=== PATIENT | female | born 1980 | race Caucasian/White ===

== ENCOUNTER 2020-07-29 12:52 | Emergency (ER) | payer OTHER ==
[~2020-07-29] VITALS: Ht 160 cm; Wt 84.1 kg
[2020-07-29] MEDS ORDERED: QUET100T PO (12:55)
[2020-07-29 13:35] VITALS: BP 122/81
[2020-07-29] MEDS ORDERED: IBUPROFEN 600 MG TABLET PO ONE (13:45)
[2020-07-29] MEDS ORDERED: NEOMYCIN/POLYMYXIN B/HYDROCORT 10 ML OTIC SUSPENSION AS ONE (13:45)
== END 2020-07-29 13:57 | disposition home or self-care (01) ==
LOC: EMS 13:00
DX: H60.92 Unspecified otitis externa, left ear (principal); F41.9 Anxiety disorder, unspecified; F17.210 Nicotine dependence, cigarettes, uncomplicated

== ENCOUNTER 2020-08-27 13:57 | Emergency (ER) | payer OTHER ==
[~2020-08-27] VITALS: Ht 154.9 cm; Wt 104.5 kg
[~2020-08-27 13:57] MED LIST: QUET100T PO
[2020-08-27] MEDS ORDERED: OXYMETAZOLINE HCL 0.05% 15 ML NASAL SPRAY NASAL ONE (16:00)
[2020-08-27 16:19] VITALS: BP 125/69
== END 2020-08-27 16:21 | disposition home or self-care (01) ==
LOC: EMS 13:57
DX: H66.92 Otitis media, unspecified, left ear (principal); F41.9 Anxiety disorder, unspecified; F17.210 Nicotine dependence, cigarettes, uncomplicated; Z88.1 Allergy status to other antibiotic agents; Z91.040 Latex allergy status